=== PATIENT | male | born 1990 | race African-American/Black ===

== ENCOUNTER 2017-08-26 07:45 | Emergency (ER) | payer OTHER ==
[~2017-08-26] VITALS: Ht 167.6 cm; Wt 90.7 kg
[~2017-08-26 07:45] MED LIST: NORCO 5-325 TA1 EACH PO; PEPCID20 MG PO
[2017-08-26] MEDS ORDERED: BACTRIM DS TAB1 EACH PO (09:20)
== END 2017-08-26 09:30 | disposition home or self-care (01) ==
LOC: ER 07:45
DX: S80.861A Insect bite (nonvenomous), right lower leg, initial encounter (principal); F17.210 Nicotine dependence, cigarettes, uncomplicated; W57.XXXA Bitten or stung by nonvenomous insect and other nonvenomous arthropods, initial encounter; Y93.89 Activity, other specified; Y92.89 Other specified places as the place of occurrence of the external cause; Y99.8 Other external cause status

== ENCOUNTER 2020-02-07 22:13 | Emergency (ER) | payer OTHER ==
[~2020-02-07] VITALS: Ht 167.6 cm; Wt 90.7 kg
[~2020-02-07 22:13] MED LIST changes: +BACTRIM DS TAB1 EACH PO
[2020-02-07 22:48] LABS: HEMATOCRIT 43.7 % (42.0-52.0); HEMOGLOBIN 15.6 gm/dL (14.0-18.0); MCH 32.2 pg (26.0-34.0); MCHC 35.8 g/dL (28.0-37.0); MCV 89.9 fL (80.0-100.0); RBC 4.86 mil/uL (4.50-6.00); RDW 12.8 % (10.5-14.5); WBC 11.7 thou/uL (4.0-11.0)
[2020-02-07 23:00] LABS: CALCIUM 8.8 mg/dL (8.5-10.1); CREATININE 1.1 mg/dL (0.7-1.3); POTASSIUM 3.9 mmol/L (3.5-5.1)
[2020-02-07 23:06] LABS: TOTAL BILIRUBIN 0.3 mg/dL (0.2-1.0); TOTAL PROTEIN 7.1 g/dL (6.4-8.2)
[2020-02-07] MEDS ORDERED: PROTONIX40 MG PO (23:21)
[2020-02-07 23:25] VITALS: BP 131/90
== END 2020-02-07 23:30 | disposition home or self-care (01) ==
LOC: ER 22:13
PROVIDERS: Emergency Medicine
DX: R10.13 Epigastric pain (principal); R10.12 Left upper quadrant pain; F17.210 Nicotine dependence, cigarettes, uncomplicated